=== PATIENT | female | born 1985 | race Caucasian/White ===

== ENCOUNTER 2019-06-03 04:45 | Emergency (ER) | payer BC ==
[~2019-06-03] VITALS: Ht 172.7 cm; Wt 56.7 kg
[2019-06-03 04:52] VITALS: BP 120/60
--- NOTE | 2019-06-03 04:52 | NUR ---
TO BED # 04 AMBULATORY
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
[2019-06-03] MEDS ORDERED: IBUPROFEN 800 MG TAB PO ONE (05:15)
[2019-06-03 05:32] LABS: APPEARANCE,URINE CLOUDY (CLEAR); BILIRUBIN,URINE NEGATIVE (NEGATIVE); BLOOD, URINE 3+ (NEGATIVE); COLOR,URINE YELLOW (YELLOW); LEUKOCYTE ESTERASE ,URINE 1+ (NEGATIVE); NITRITE, URINE NEGATIVE (NEGATIVE); PH,URINE 7.5 (5.0-9.0); UGLUCOSE NEGATIVE (NEGATIVE)
[2019-06-03] MEDS ORDERED: MORPHINE SULFATE 4 MG/ML SYR IM ONE (05:35)
--- NOTE | 2019-06-03 05:40 | NUR ---
PT STILL IN PAIN. PAIN LEVEL 10/10 IN POSITION. ERMD MADE AWARE.
--- NOTE | 2019-06-03 05:57 | NUR ---
PT AT CT
[2019-06-03 06:09] LABS: RBC,URINE >100 /HPF (0-5); WBC,URINE 80-100 /HPF (0-5)
[2019-06-03] MEDS ORDERED: CIPROFLOXACIN 250 MG TAB PO ONE (06:20)
--- NOTE | 2019-06-03 06:28 | NUR ---
PT RESTING IN BED COMFORTABLY. VSS. DIMMED THE LIGHTS, OFFERED ICE PACK FOR COMFORT MEASURES. WILL CONTINUE TO MONITOR.
--- NOTE | 2019-06-03 06:41 | NUR ---
Patient discharged with v/s stable. Pt encouraged to drink plenty of fluids and take all antibiotics as prescribed. Written and verbal after care instructions given and explained. Patient alert, oriented and verbalized understanding of instructions. Ambulatory with steady gait. All questions addressed prior to discharge. ID band removed. Patient advised to follow up with PMD. Rx of IBUPROFEN AND CIPRO WAS given. Patient educated on indication of medication including possible reaction and side effects. Opportunity to ask questions provided and answered.
[2019-06-03 06:42] VITALS: BP 120/60
== END 2019-06-03 06:41 | disposition home or self-care (01) ==
LOC: MED 04:45
DX: N12 Tubulo-interstitial nephritis, not specified as acute or chronic (principal); F14.10 Cocaine abuse, uncomplicated
CPT/HCPCS: 74176; 81001; 81025; 87086; 87186; 96372; 99284; J2270